=== PATIENT | male | born 1935 | race Asian ===

== ENCOUNTER 2017-11-05 06:23 | Day surgery (SDC) | payer OTHER ==
[~2017-11-05] VITALS: Ht 165.1 cm; Wt 43.2 kg
[~2017-11-05 06:23] MED LIST: B1 PO; COD1CAPS PO; DIGO125T PO; DILT30 PO; DOCU250C91 PO; FAMO20 PO; GARL200T PO; METO25XL PO
[2017-11-05] MEDS ORDERED: LIDOCAINE HCL 2% 30 ML JELLY TP ONE (06:24)
[2017-11-05] MEDS ORDERED: BENZOCAINE 20% 50 MCG/SPRAY 57 GM TP ONE (06:24)
[2017-11-05] MEDS ORDERED: ALBUTEROL SULFATE 2.5 MG/0.5 ML NEB SOLUTION NEB ONE (06:24)
[2017-11-05] MEDS ORDERED: LIDOCAINE HCL 4% 50 ML SOLUTION TP ONE (06:24)
[2017-11-05] MEDS ORDERED: SODIUM CHLORIDE 0.9% 1,000 ML IV ONE ×2 (06:31→07:30)
[2017-11-05] MEDS ORDERED: DIGO125T PO (06:57)
[2017-11-05] MEDS ORDERED: FLUT16H NASAL (06:57)
[2017-11-05] MEDS ORDERED: FAMO20 PO (06:57)
[2017-11-05] MEDS ORDERED: ALBU8.5H8 IH (06:57)
[2017-11-05] MEDS ORDERED: BUDE10.2 IH (06:57)
[2017-11-05] MEDS ORDERED: MEMA10TA11 PO (06:57)
[2017-11-05] MEDS ORDERED: PRED10TA3 PO (06:57)
[2017-11-05] MEDS ORDERED: AMOX1TAB16 PO (06:57)
[2017-11-05] MEDS ORDERED: MONT10TA21 PO (06:57)
[2017-11-05] MEDS ORDERED: DOCU250C91 PO (06:57)
[2017-11-05] MEDS ORDERED: DOXY100C PO (06:57)
[2017-11-05] MEDS ORDERED: DILT30 PO (06:57)
[2017-11-05 07:27] LABS: GLUCOMETER DEV NAME(LOC) SDS 5; GLUCOSE,POINT OF CARE 132 MG/DL (70-110)
[2017-11-05] MEDS ORDERED: MIDAZOLAM HCL 2 MG/2 ML VIAL ONE (07:39)
[2017-11-05] MEDS ORDERED: FentaNYL CITRATE-PF 100 MCG/2 ML VIAL ONE (07:40)
[2017-11-05] MEDS ORDERED: MethylPREDNISolone SOD SUCC 125 MG/2 ML VIAL IVP ONE (09:15)
[2017-11-05] MEDS ORDERED: MethylPREDNISolone SOD SUCC 125 MG/2 ML VIAL ONE (09:22)
[2017-11-05] MEDS ORDERED: OXYGEN THERAPY IH SCH (20:00)
== END 2017-11-05 10:35 | disposition home or self-care (01) ==
LOC: SURGERY 06:23
PROVIDERS: ATTEND Internal Medicine Critical Care Medicine
DX: J38.4 Edema of larynx (principal); B37.0 Candidal stomatitis; J84.111 Idiopathic interstitial pneumonia, not otherwise specified; I10 Essential (primary) hypertension; Z79.899 Other long term (current) drug therapy
CPT/HCPCS: 31623; 31624; 71010; 82962; 87015; 87070; 87147; 87205; 87220; 88108; 88312; 93005; J2250; J2930; J3010; J7030